=== PATIENT | female | born 1955 | race Caucasian/White ===

== ENCOUNTER 2025-08-14 23:50 | Emergency (ER) | payer SELFPAY ==
[2025-08-15 00:09] VITALS: BP 175/89
[2025-08-15 01:40] VITALS: BP 176/99
[2025-08-15 01:41] VITALS: BMI 45.7
[2025-08-15] MEDS: TYLENOL 1000 MG PO (04:12)
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
== END 2025-08-15 05:36 | disposition home or self-care (01) ==
LOC: EMR 23:50
PROVIDERS: EMERGENCY PHYSICIAN Emergency Medicine
DX: S39.012A Strain of muscle, fascia and tendon of lower back, initial encounter (principal); S80.01XA Contusion of right knee, initial encounter; V49.50XA Passenger injured in collision with unspecified motor vehicles in traffic accident, initial encounter; E03.9 Hypothyroidism, unspecified; E11.9 Type 2 diabetes mellitus without complications; E78.00 Pure hypercholesterolemia, unspecified; I10 Essential (primary) hypertension; Z90.49 Acquired absence of other specified parts of digestive tract
CPT/HCPCS: 99284; 72110; 73564